=== PATIENT | male | born 1960 | race Caucasian/White ===

== ENCOUNTER 2017-02-10 13:45 | Emergency (ER) | payer MEDICAID, OTHER ==
[~2017-02-10] VITALS: Wt 79.5 kg
[2017-02-10] MEDS ORDERED: METF500T4 PO (14:26)
--- NOTE | 2017-02-10 18:50 | ERD ---
ER Documentation Chief Complaint Date/Time DATE: 02/10/17 TIME: 18:48 Chief Complaint ran out of oral meds for type II dm. needs rx for meds no complaints HPI Patient is a 56-year-old male with diabetes who presents for a refill on his Metformin. He said that he takes 500 mg twice a day and metformin. He also feels like he has something in his left eye. He says "it feels like a web my eye". He has had these symptoms for over one year. Upon review of old medical records this is the patient's first visit to the emergency department. He does not currently have a primary doctor. ROS All systems reviewed and are negative except as per history of present illness. Medications Home Meds Active Scripts Metformin* (Glucophage*) 500 Mg Tab, 500 MG PO BID, #60 TAB Prov:ESCOBAR LARA MD 02/10/17 PMhx/Soc Hx Miscellaneous Medical Probl: Yes (DM TYPE II) Hx Alcohol Use: No Hx Substance Use: No FmHx Family History: No diabetes Physical Exam Vitals Vital Signs Date Time Temp Pulse Resp B/P Pulse Ox O2 Delivery O2 Flow Rate FiO2 02/10/17 13:49 98.5 94 18 141/74 98 Physical Exam Const: No acute distress Head: Atraumatic Eyes: Normal Conjunctiva ENT: Normal External Ears, Nose and Mouth. Neck: Full range of motion..~ No meningismus. Resp: Clear to auscultation bilaterally Cardio: Regular rate and rhythm, no murmurs Abd: Soft, non tender, non distended. Normal bowel sounds Skin: No petechiae or rashes Back: No midline or flank tenderness Ext: No cyanosis, or edema Neur: Awake and alert Psych: Normal Mood and Affect Procedures/MDM Patient is a 56-year-old male with diabetes who presents for a refill of his metformin. I will give him a refill for metformin but I told him it is imperative that he follows up closely with a primary doctor within 24-48 hours and needs to obtain a new primary doctor. I will give him information for the local clinics. He says that he has eye issues and I told him it would be important for him to follow-up with an foundry equipment mechanic as well but the symptoms have been there for over one year. He can return for any worsening symptoms. At this point I doubt stroke. I doubt diabetic ketoacidosis. Departure Diagnosis: Primary Impression: Visual changes Additional Impression: Encounter for medication refill Condition: Fair Patient Instructions: Managing Your Glucose Level for Diabetes and Kidney Disease, Understanding Vision Problems [facility] Usted se edgar hecho un examen mdico de control que le indica que no est en harpreet condicin que requiera tratamiento urgente en el Departamento de Emergencia. Un estudio ms profundo y el tratamiento de elizabeth condicin pueden esperar sin ningn riesgo hasta que usted sea atendida/o en el consultorio de elizabeth mdico o harpreet cl leann. Es responsabilidad suya arreglar harpreet nesha para el seguimiento del renee. MANEJO DE CONDICIONES NO URGENTES EN EL FUTURO 1) Si usted tiene un mdico de atencin primaria: Usted debera llamar a elizabeth mdico de atencin primaria antes de venir al departamento de emergencia. Despus de las horas de consultorio, elizabeth doctor o elizabeth asociado/a est disponible por telfono. El mdico o enfermero de harriett en el servicio telefnico puede asesorarle por sam medio para atender el problema, o renee contrario se puede programar harpreet nesha. 2) Si usted no tiene un mdico de atencin primaria: Llame al mdico o clnica de referencia que aparece abajo shyam las horas de consultorio para hacer harpreet nesha para que le vean. CLINICAS: [facility] [phone] [facility] [phone] [facility] [phone] [facility]. [facility] [phone] [facility]. [facility] [phone] [facility]. [phone] [address] Additional Instructions: Llame al doctor MAANA y catracho harpreet NESHA PARA DENTRO DE 1-2 PIERCE.Dgale a la secretaria que nosotros le instruimos hacer esta ensha.Avise o llame si elizabeth condicin se empeora antes de la nesha. Regresa aqui si peor o no mejor. ESCOBAR LARA MD Feb 10, 2017 18:50
== END 2017-02-10 14:30 | disposition home or self-care (01) ==
LOC: FTE 13:45
DX: H53.8 Other visual disturbances (principal); E11.9 Type 2 diabetes mellitus without complications; Z76.0 Encounter for issue of repeat prescription
CPT/HCPCS: 99282

== ENCOUNTER 2017-04-14 18:52 | Emergency (ER) | payer OTHER ==
[~2017-04-14] VITALS: Ht 165.1 cm; Wt 77.5 kg
[~2017-04-14 18:52] MED LIST: METF500T4 PO
[2017-04-14 19:07] VITALS: Ht 165.1 cm; Wt 77.5 kg
[2017-04-14] MEDS ORDERED: CLIN-73 PO (20:18)
[2017-04-14] MEDS ORDERED: HYDR-906 PO (20:18)
[2017-04-14 20:24] VITALS: BP 129/72; PULSE 95; RESP 20; TEMP 98.5
--- NOTE | 2017-04-14 20:26 | ERD ---
ER Documentation Chief Complaint Date/Time DATE: 04/14/17 TIME: 20:24 Chief Complaint swelling right side of face/jaw x 2 days HPI 57-year-old male comes emergency department with 2 day history of right-sided lower jaw face and swelling. Patient states that there is swelling at the bottom of his jaw and the pain and swelling has increased towards his cheek as well. He does have history of poor dentition. He has not had any fevers, chills, trouble swallowing or voice changes.. He denies trauma. ROS All systems reviewed and are negative except as per history of present illness. Medications Home Meds Active Scripts Hydrocodone/Acetaminophen ([place] 5-325 Tablet) 1 Each Tablet, 1 TAB PO Q6H Y for PAIN, #7 TAB Prov:JEFFERY SPENCER PA-C 04/14/17 Clindamycin Hcl* (Clindamycin Hcl*) 300 Mg Capsule, 300 MG PO TID for 10 Days, CAP Prov:JEFFERY SPENCER PA-C 04/14/17 Metformin* (Glucophage*) 500 Mg Tab, 500 MG PO BID, #60 TAB Prov:ESCOBAR LARA MD 02/10/17 Allergies Allergies: Coded Allergies: No Known Drug Allergies (Verified Allergy, Unknown, 04/14/17) PMhx/Soc History of Surgery: Yes (mass on the chest) Hx Cardiac Disorders: Yes (cholesterol) Hx Miscellaneous Medical Probl: Yes (DM TYPE II) Hx Alcohol Use: No Hx Substance Use: No Hx Tobacco Use: No Smoking Status: Never smoker Physical Exam Vitals Vital Signs Date Time Temp Pulse Resp B/P Pulse Ox O2 Delivery O2 Flow Rate FiO2 04/14/17 19:07 99.3 97 20 121/78 99 Physical Exam General: Well-developed, well-nourished. The patient appears in no acute distress. HEENT: Head is normocephalic, atraumatic. No scleral icterus. Patient has poor dentition throughout, multiple teeth missing between the molar. Right lower jaw has swelling and indurated area, there is tenderness throughout the cheek. There is no trismus. Oropharynx is clear. Neck: Supple. Nontender. No masses. Lungs: Clear to auscultation. Normal air movement. Heart: Regular rate and rhythm. S1 and S2 are normal. No murmurs, gallops, or rubs. Abdomen: Nondistended. Extremities: No clubbing or cyanosis. Moving extremities x 4. No weakness. Neurologic: Alert and oriented 3. No focal deficits. Normal speech and gait. Skin: Normal turgor. No rash or lesions. Procedures/MDM 57-year-old male comes in with right-sided lower jaw abscess, patient has a facial abscess versus dental abscess. I suspect a dental abscess at this time given his poor dentition however patient denies any tooth pain. Regardless, he will be given antibiotics and has been asked to follow-up with a dentist in the next 1-2 days. There is no evidence of any airway obstructive process, trismus , jaw dislocation, retropharyngeal abscess, Ojhn angina. He is well- appearing at this time. He will be given a short course of [place] for pain, he does have a colonoscopy next week and cannot take anti-inflammatories at this time. Also advised to do warm compresses. Departure Diagnosis: Primary Impression: Abscess Condition: Good Patient Instructions: Abscess, Antiobiotic Treatment Only Additional Instructions: Llame al DENTISTA MAANA y catracho harpreet NESHA PARA DENTRO DE 1-2 PIERCE.Dgale a la secretaria que nosotros le instruimos hacer esta nesha.Avise o llame si elizabeth condicin se empeora antes de la nesha. Regresa aqui si peor o no mejor. JEFFERY SPENCER PA-C April 14, 2017 20:26
== END 2017-04-14 20:25 | disposition home or self-care (01) ==
LOC: FTE 18:52
DX: M27.2 Inflammatory conditions of jaws (principal); E11.9 Type 2 diabetes mellitus without complications; Z79.84 Long term (current) use of oral hypoglycemic drugs
CPT/HCPCS: 99284